=== PATIENT | male | born 1990 | race Caucasian/White ===

== ENCOUNTER 2021-05-12 14:14 | Inpatient (IN) | payer MEDICAID ==
[~2021-05-12] VITALS: Ht 182.9 cm; Wt 75.0 kg
[2021-05-12] MEDS ORDERED: LIDOcaine Viscous 15ml cup MM ONE (14:45)
[2021-05-12] MEDS ORDERED: mag hydrox/Alum hydrox/simeth 30ml oral suspension PO ONE (14:45)
[2021-05-12 15:02] LABS: BASOPHILS # (AUTO) 0.1 X10'3 (0-0.2); EOSINOPHILS % (AUTO) 0 % (0-6); HEMATOCRIT 43.3 % (42.0-52.0); HEMOGLOBIN 14.8 g/dl (14.0-17.9); LYMPHOCYTES # (AUTO) 0.6 X10'3 (1.1-4.8); MEAN CORPUSCULAR HEMOGLOBIN 32.5 PG (27.0-31.0); MEAN CORPUSCULAR HGB CONC 34.3 g/dL (33.0-36.5); MEAN CORPUSCULAR VOLUME 94.8 FL (78-98); MEAN PLATELET VOLUME 7.6 FL (7.4-10.4); MONOCYTES # (AUTO) 0.7 X10'3 (0-0.9); MONOCYTES % (AUTO) 9.4 % (2-12); NEUTROPHILS # (AUTO) 5.7 X10'3 (1.8-7.7); NEUTROPHILS % (AUTO) 80.6 % (42-75); PLATELET COUNT 164 X10'3 (140-440); RED BLOOD COUNT 4.57 X10'6 (4.70-6.10); RED CELL DISTRIBUTION WIDTH 14.8 % (11.5-14.5); WHITE BLOOD COUNT 7.1 X10'3 (4.5-11.0)
[2021-05-12] MEDS ORDERED: normal saline 1000ml 1,000 ML IV ONE (15:15)
[2021-05-12 15:18] LABS: ALANINE AMINOTRANSFERASE 71 U/L (12-78); ALKALINE PHOSPHATASE 115 IU/L (46-116); ANION GAP 22 (8-16); ASPARTATE AMINO TRANSFERASE 130 U/L (10-37); BILIRUBIN,TOTAL 1.7 MG/DL (0.1-1.0); BLOOD UREA NITROGEN 7 MG/DL (7-18); BUN/CREATININE RATIO 7.8 (5.4-32.0); CALCIUM 8.7 MG/DL (8.5-10.1); CHLORIDE 99 MMOL/L (99-107); GLUCOSE 117 MG/DL (70-104); POTASSIUM 3.6 MMOL/L (3.5-5.1); SODIUM 140 MMOL/L (135-145); TOTAL CARBON DIOXIDE 19.5 MMOL/L (24-32); eGFR > 90 ML/MIN
[2021-05-12 15:24] LABS: ETHANOL 0.185 GM/DL (0.0-0.010); LIPASE 1055 U/L (73-393)
[2021-05-12] MEDS ORDERED: LORazepam 2 mg/ml vial IV ONE (16:00)
[2021-05-12 16:04] LABS: CLARITY,URINE CLEAR (Clear); GLUCOSE, URINE NEGATIVE (Neg); KETONES,URINE >=80 mg/dl (Neg); LEUKOCYTE ESTERASE ,URINE NEGATIVE (Neg); NITRITES, URINE NEGATIVE (Neg); OCCULT BLOOD,URINE SMALL (Neg); PROTEIN,URINE >=300 mg/dl (Neg)
[2021-05-12 16:17] LABS: URINE AMPHETAMINE SCREEN POSITIVE (Neg); URINE BARBITUATE SCREEN NEGATIVE (Neg); URINE BENZODIAZEPINES SCREEN POSITIVE (Neg); URINE CANNABINOID SCREEN POSITIVE (Neg); URINE COCAINE SCREEN NEGATIVE (Neg); URINE METHADONE SCREEN NEGATIVE (Neg); URINE OPIATE SCREEN POSITIVE (Neg); URINE PHENCYCLIDINE SCREEN NEGATIVE (Neg)
[2021-05-12 16:18] LABS: UA COLLECTION TYPE VOIDED
[2021-05-12 16:19] LABS: COLOR,URINE DARK YELLOW (Yellow)
[2021-05-12 16:20] LABS: BACTERIA,URINE NONE SEEN /HPF (Neg); MUCUS STRANDS FEW /LPF (Neg); RBC,URINE 0-2 /HPF (0-2); SQUAMOUS EPITHELIAL CELL,UR FEW /LPF (FEW); WBC,URINE 0-4 /HPF (0-4)
[2021-05-12] MEDS ORDERED: HYDROcodone/acetaminophen 10/325mg tab PO ONE (16:25)
[2021-05-12] MEDS ORDERED: proCHLORperazine 10 MG/2 ml inj IV ONE (19:10)
[2021-05-12] MEDS ORDERED: folic acid inj. 2 MG, thiamine inj. 100 MG, MVI, adult No.4 with vit. K 10 ML in dextro... IV SCH ×4 (19:10)
[2021-05-12] MEDS ORDERED: normal saline 1000ML IV soln IVB ONE (19:10)
[2021-05-12] MEDS ORDERED: folic acid 1mg/0.2ml inj IV ONE (19:20)
[2021-05-12] MEDS ORDERED: thiamine 100mg/ml 2ml inj. IV ONE (19:20)
[2021-05-12] MEDS ORDERED: morphine 2 MG/ML inj. syringe IV PRN (20:05)
[2021-05-12] MEDS ORDERED: potassium Cl 40MEQ/1/2NS 520ml 520 ML IV PRN ×2 (20:05)
[2021-05-12] MEDS: normal saline 1000ml 1,000 ML IV SCH (20:05)
[2021-05-12] MEDS ORDERED: potassium Cl 20 mEq SR tablet PO PRN ×2 (20:05)
[2021-05-12] MEDS ORDERED: NO HOME MEDS (20:08)
[2021-05-12] MEDS ORDERED: pantoprazole 40 MG vial IV ONE (20:10)
[2021-05-13] MEDS: LORazepam 2 mg/ml vial IV PRN ×8 (04:35→22:52)
[2021-05-13] MEDS: normal saline 1000ml 1,000 ML IV SCH ×2 (06:29→16:29)
[2021-05-13] MEDS: morphine 2 MG/ML inj. syringe IV PRN ×3 (06:39→20:55)
[2021-05-13] MEDS: ondansetron/PF 4mg/2ml inj IV PRN ×2 (06:39→18:36)
[2021-05-13 07:04] LABS: BASOPHILS % (AUTO) 0.6 % (0-1); EOSINOPHILS % (AUTO) 0.7 % (0-6); HEMATOCRIT 39.4 % (42.0-52.0); HEMOGLOBIN 13.3 g/dl (14.0-17.9); LYMPHOCYTES % (AUTO) 14.4 % (21-51); MEAN CORPUSCULAR HGB CONC 33.6 g/dL (33.0-36.5); MEAN PLATELET VOLUME 8.3 FL (7.4-10.4); MONOCYTES # (AUTO) 0.7 X10'3 (0-0.9); MONOCYTES % (AUTO) 11.2 % (2-12); NEUTROPHILS # (AUTO) 4.9 X10'3 (1.8-7.7); NEUTROPHILS % (AUTO) 73.1 % (42-75); PLATELET COUNT 121 X10'3 (140-440); RED BLOOD COUNT 4.02 X10'6 (4.70-6.10); RED CELL DISTRIBUTION WIDTH 14.5 % (11.5-14.5); WHITE BLOOD COUNT 6.7 X10'3 (4.5-11.0)
[2021-05-13 07:13] LABS: ALANINE AMINOTRANSFERASE 52 U/L (12-78); ALBUMIN 3.5 G/DL (3.4-5.0); ALKALINE PHOSPHATASE 107 IU/L (46-116); ANION GAP 11 (8-16); ASPARTATE AMINO TRANSFERASE 92 U/L (10-37); BLOOD UREA NITROGEN 6 MG/DL (7-18); BUN/CREATININE RATIO 7.8 (5.4-32.0); CALCIUM 8.7 MG/DL (8.5-10.1); CHLORIDE 106 MMOL/L (99-107); CREATININE 0.77 MG/DL (0.60-1.10); GLUCOSE 82 MG/DL (70-104); LIPASE 891 U/L (73-393); POTASSIUM 4.4 MMOL/L (3.5-5.1); SODIUM 143 MMOL/L (135-145); TOTAL CARBON DIOXIDE 25.7 MMOL/L (24-32); TOTAL PROTEIN 6.9 G/DL (6.4-8.2); eGFR > 90 ML/MIN
[2021-05-13] MEDS: K and/or MAG REPLACEMENT MC SCH ×2 (08:00→20:00)
[2021-05-13] MEDS ORDERED: thiamine 100mg tablet PO SCH (08:00)
[2021-05-13] MEDS: heparin, porcine 5000 units/ml vial SQ SCH ×2 (08:00→20:00)
[2021-05-13 09:25] VITALS: BP 140/78
[2021-05-13 10:24] LABS: PARTIAL THROMBOPLASTIN TIME 27 SECONDS (22-32)
[2021-05-13 11:00] VITALS: BP 136/85
[2021-05-13 15:00] VITALS: BP 136/90
[2021-05-13 18:00] VITALS: BP 135/88
[2021-05-13 22:00] VITALS: BP 141/77
[2021-05-14] MEDS: LORazepam 2 mg/ml vial IV PRN (00:01)
--- NOTE | 2021-05-14 01:19 | NUR ---
Paged Dr. Parikh regarding patient leaving AMA. PAGER ID: [phone] MESSAGE: [phone]. Naren Oquendo. Patient leaving AMA. Thank you. Shonna MICHAEL x [phone]
--- NOTE | 2021-05-14 01:20 | NUR ---
Patient removed his IV and stated he wanted to leave. Pt signed an AMA form and left the hospital unassisted. Dr Parikh was notified and an occurrence report was made.
[2021-05-14] MEDS ORDERED: LORazepam 2 mg/ml vial IV PRN (20:10)
[2021-05-14] MEDS ORDERED: LORazepam 1 MG tablet PO PRN (20:10)
[2021-05-16] MEDS ORDERED: LORazepam 1 MG tablet PO PRN (20:10)
[2021-05-16] MEDS ORDERED: LORazepam 2 mg/ml vial IV PRN (20:10)
== END 2021-05-14 01:20 | disposition left against medical advice (07) | DRG 282 ==
LOC: EDBD → ER 14:15 → ED HOLD 20:06 → PCU 3S 05-13 09:29
PROVIDERS: ADMIT Internal Medicine; ATTEND Family Medicine
DX: K85.20 Alcohol induced acute pancreatitis without necrosis or infection (principal); K70.10 Alcoholic hepatitis without ascites; F10.20 Alcohol dependence, uncomplicated; F15.90 Other stimulant use, unspecified, uncomplicated; F19.10 Other psychoactive substance abuse, uncomplicated; Z20.822 Contact with and (suspected) exposure to COVID-19; Z53.29 Procedure and treatment not carried out because of patient's decision for other reasons; Z56.0 Unemployment, unspecified; Z71.41 Alcohol abuse counseling and surveillance of alcoholic; Z71.51 Drug abuse counseling and surveillance of drug abuser
CPT/HCPCS: 36415; 74176; 76700; 80053; 80305; 80320; 81001; 82948; 83690; 85025; 85610; 85730; 87081; 87635; 96361; 96374; 96375; 99285; C9113; G0378; J0780; J2060; J2270; J2405; J3411; J3490; J7030

== ENCOUNTER 2021-05-14 01:42 | Emergency (ER) | payer MEDICAID ==
[~2021-05-14] VITALS: Ht 180.3 cm; Wt 79.0 kg
[~2021-05-14 01:42] MED LIST: NO HOME MEDS
[2021-05-14] MEDS ORDERED: normal saline 1000ml 1,000 ML IV ONE (02:25)
[2021-05-14 03:43] LABS: BASOPHILS # (AUTO) 0.1 X10'3 (0-0.2); BASOPHILS % (AUTO) 0.9 % (0-1); EOSINOPHILS # (AUTO) 0.1 X10'3 (0-0.9); EOSINOPHILS % (AUTO) 2.4 % (0-6); HEMATOCRIT 37.9 % (42.0-52.0); LYMPHOCYTES # (AUTO) 0.9 X10'3 (1.1-4.8); LYMPHOCYTES % (AUTO) 15.4 % (21-51); MEAN CORPUSCULAR HEMOGLOBIN 33.1 PG (27.0-31.0); MEAN CORPUSCULAR HGB CONC 34.3 g/dL (33.0-36.5); MEAN CORPUSCULAR VOLUME 96.4 FL (78-98); MEAN PLATELET VOLUME 8.3 FL (7.4-10.4); MONOCYTES # (AUTO) 0.7 X10'3 (0-0.9); MONOCYTES % (AUTO) 12.2 % (2-12); NEUTROPHILS # (AUTO) 4.1 X10'3 (1.8-7.7); NEUTROPHILS % (AUTO) 69.1 % (42-75); PLATELET COUNT 110 X10'3 (140-440); RED BLOOD COUNT 3.93 X10'6 (4.70-6.10); RED CELL DISTRIBUTION WIDTH 14.1 % (11.5-14.5); WHITE BLOOD COUNT 5.9 X10'3 (4.5-11.0)
[2021-05-14] MEDS ORDERED: potassium Cl 20 mEq SR tablet PO PRN ×2 (03:55)
[2021-05-14] MEDS ORDERED: LORazepam 1 MG tablet PO PRN (03:55)
[2021-05-14] MEDS ORDERED: HYDROcodone/acetaminophen 5mg/325mg tablet PO PRN (03:55)
[2021-05-14] MEDS ORDERED: acetaminophen 325mg tablet PO PRN ×2 (03:55)
[2021-05-14] MEDS ORDERED: potassium Cl 40MEQ/1/2NS 520ml 520 ML IV PRN ×2 (03:55)
[2021-05-14] MEDS ORDERED: magnesium 2GM in 50ml NS 50 ML IV PRN (03:55)
[2021-05-14] MEDS ORDERED: ondansetron/PF 4mg/2ml inj IV PRN (03:55)
[2021-05-14] MEDS ORDERED: mag hydrox/Alum hydrox/simeth 30ml oral suspension PO PRN (03:55)
[2021-05-14] MEDS ORDERED: LORazepam 2 mg/ml vial IV PRN (03:55)
[2021-05-14] MEDS ORDERED: normal saline 1000ml 1,000 ML IV SCH (03:55)
[2021-05-14] MEDS ORDERED: magnesium Cl slow-release 64mg tablet PO PRN (03:55)
[2021-05-14] MEDS ORDERED: morphine 2 MG/ML inj. syringe IV PRN ×2 (03:55)
[2021-05-14] MEDS ORDERED: HYDROcodone/acetaminophen 10/325mg tab PO PRN (03:55)
[2021-05-14] MEDS ORDERED: magnesium 4gm in 100ml NS 100 ML IV PRN (03:55)
[2021-05-14 03:56] LABS: ALANINE AMINOTRANSFERASE 44 U/L (12-78); ALBUMIN 3.6 G/DL (3.4-5.0); ALKALINE PHOSPHATASE 107 IU/L (46-116); ANION GAP 10 (8-16); ASPARTATE AMINO TRANSFERASE 61 U/L (10-37); BILIRUBIN,TOTAL 2.2 MG/DL (0.1-1.0); BLOOD UREA NITROGEN 3 MG/DL (7-18); BUN/CREATININE RATIO 4.5 (5.4-32.0); CALCIUM 8.6 MG/DL (8.5-10.1); CHLORIDE 97 MMOL/L (99-107); CREATININE 0.67 MG/DL (0.60-1.10); ETHANOL < 0.010 GM/DL (0.0-0.010); GLUCOSE 83 MG/DL (70-104); LIPASE 329 U/L (73-393); POTASSIUM 3.3 MMOL/L (3.5-5.1); SODIUM 134 MMOL/L (135-145); TOTAL CARBON DIOXIDE 27.4 MMOL/L (24-32); TOTAL PROTEIN 7.2 G/DL (6.4-8.2); eGFR > 90 ML/MIN
--- NOTE | 2021-05-14 04:05 | NUR ---
Pt stands up and asks when he will be given "a bed upstairs". Requests ativan d/t difficulty sleeping. Pt medicated for anxiety and pain.
--- NOTE | 2021-05-14 05:21 | NUR ---
Pt is sleeping comfortably. Equal rise and fall of chest.
--- NOTE | 2021-05-14 07:30 | NUR ---
RN ATTEMPTS TO CALL REPORT TO [facility] MICHAEL, THIS RN WAS TOLD THAT [facility] IS IN ISOLATION ROOM AND WILL CALL ER BACK IN ABOUT 5 MINUTES.
--- NOTE | 2021-05-14 07:36 | NUR ---
RECEIVED REPORT FROM FERNANDA JENKINS IN ER. PT WILL BE GOING TO ROOM 1744C
[2021-05-14] MEDS ORDERED: thiamine inj. 100 MG in normal saline 100ml IV soln 100 ML IV SCH (08:00)
[2021-05-14] MEDS ORDERED: heparin, porcine 5000 units/ml vial SQ SCH (08:00)
[2021-05-14] MEDS ORDERED: K and/or MAG REPLACEMENT MC SCH (08:00)
[2021-05-14] MEDS ORDERED: folic acid 1mg/0.2ml inj IV SCH (08:00)
[2021-05-14 08:20] VITALS: BP 135/91
--- NOTE | 2021-05-14 08:32 | NUR ---
Page Sent PAGER ID: [phone] MESSAGE: [facility] [phone] RE: SHAR CORCORAN [id number] PT WANTS TO LEAVE AMA. THANK YOU
--- NOTE | 2021-05-14 08:37 | NUR ---
Page Sent PAGER ID: [phone] MESSAGE: ACE [phone] RE: SHAR CORCORAN [id number] PT REFUSED TO WAIT FOR MD, SIGNED AMA PAPER AT 0835 AND LEFT FLOOR
--- NOTE | 2021-05-14 08:37 | NUR ---
PT LEFT AMA, SIGNED AMA PAPERWORK AND LEFT FLOOR AT 0835. RN REMOVED IV, CANNULA INTACT, NO COMPLICATIONS
[2021-05-14] MEDS ORDERED: temazepam 15mg capsule PO PRN (21:00)
== END 2021-05-14 08:35 | disposition left against medical advice (07) ==
LOC: ER 01:47 → ED HOLD 03:57 → UNDOADMIN 03:57 → ED HOLD 08:30 → ORTHO 4S 08:30 → UNDODISIN 08:35 → ER 08:35
DX: K85.90 Acute pancreatitis without necrosis or infection, unspecified (principal); F10.230 Alcohol dependence with withdrawal, uncomplicated
CPT/HCPCS: 36415; 80053; 80320; 83690; 85025; 87081; 96361; 96374; 99284; J2060; J7030

== ENCOUNTER 2021-05-15 19:53 | Emergency (ER) | payer SELFPAY ==
--- NOTE | 2021-05-15 21:15 | NUR ---
PT IS CAUSING PROBLEMS WHILE WAITING FOR A BED ON [facility]BUL[facility]. SECURITY PRESENT
[2021-05-15] MEDS ORDERED: sucralfate 1gm/10ml UD suspension PO STA (21:45)
[2021-05-15] MEDS ORDERED: mag hydrox/Alum hydrox/simeth 30ml oral suspension PO ONE (21:45)
[2021-05-15] MEDS ORDERED: LIDOcaine Viscous 15ml cup MM ONE (21:45)
== END 2021-05-16 00:15 | disposition left against medical advice (07) ==
LOC: ER 19:53
DX: F10.129 Alcohol abuse with intoxication, unspecified (principal); K29.20 Alcoholic gastritis without bleeding; Z72.89 Other problems related to lifestyle; Z56.0 Unemployment, unspecified; Y90.9 Presence of alcohol in blood, level not specified
CPT/HCPCS: 99283

== ENCOUNTER 2021-05-21 04:51 | Emergency (ER) | payer SELFPAY ==
[~2021-05-21] VITALS: Ht 180.3 cm; Wt 74.2 kg
[2021-05-21 04:59] VITALS: BP 131/93
[2021-05-21] MEDS ORDERED: CHLO25CA10 PO (05:03)
[2021-05-21] MEDS ORDERED: ONDA8TAB13 PO (05:03)
[2021-05-21] MEDS ORDERED: LORazepam 1 MG tablet PO ONE (05:05)
== END 2021-05-21 06:00 | disposition home or self-care (01) ==
LOC: ER 04:52
DX: F10.239 Alcohol dependence with withdrawal, unspecified (principal); Z72.89 Other problems related to lifestyle; Z56.0 Unemployment, unspecified; Z59.0 Homelessness; Z79.899 Other long term (current) drug therapy; Y90.9 Presence of alcohol in blood, level not specified
CPT/HCPCS: 99283

== ENCOUNTER 2021-05-24 08:41 | Emergency (ER) | payer SELFPAY ==
[~2021-05-24] VITALS: Ht 180.3 cm; Wt 80.0 kg
[~2021-05-24 08:41] MED LIST changes: +CHLO25CA10 PO; +ONDA8TAB13 PO
[2021-05-24] MEDS ORDERED: NO HOME MEDS (09:06)
[2021-05-24 09:19] LABS: WHITE BLOOD COUNT 4.5 X10'3 (4.5-11.0)
[2021-05-24 09:20] LABS: HEMATOCRIT 43.8 % (42.0-52.0); HEMOGLOBIN 14.5 g/dl (14.0-17.9); MEAN CORPUSCULAR HEMOGLOBIN 32.4 PG (27.0-31.0); MEAN CORPUSCULAR HGB CONC 33.2 g/dL (33.0-36.5); MEAN CORPUSCULAR VOLUME 97.8 FL (78-98); MEAN PLATELET VOLUME 7.2 FL (7.4-10.4); PLATELET COUNT 400 X10'3 (140-440); RED BLOOD COUNT 4.48 X10'6 (4.70-6.10); RED CELL DISTRIBUTION WIDTH 14.8 % (11.5-14.5)
[2021-05-24 09:32] LABS: ALANINE AMINOTRANSFERASE 88 U/L (12-78); ALBUMIN 3.8 G/DL (3.4-5.0); ALBUMIN/GLOBULIN RATIO 0.9 (1.1-1.5); ALKALINE PHOSPHATASE 112 IU/L (46-116); ANION GAP 12 (8-16); ASPARTATE AMINO TRANSFERASE 62 U/L (10-37); BILIRUBIN,TOTAL 0.3 MG/DL (0.1-1.0); BLOOD UREA NITROGEN 4 MG/DL (7-18); BUN/CREATININE RATIO 6.1 (5.4-32.0); CALCIUM 8.4 MG/DL (8.5-10.1); CHLORIDE 110 MMOL/L (99-107); CREATININE 0.66 MG/DL (0.60-1.10); GLUCOSE 80 MG/DL (70-104); POTASSIUM 4.1 MMOL/L (3.5-5.1); SODIUM 148 MMOL/L (135-145); TOTAL CARBON DIOXIDE 25.7 MMOL/L (24-32); TOTAL PROTEIN 7.9 G/DL (6.4-8.2); eGFR > 90 ML/MIN
[2021-05-24 09:33] LABS: LIPASE 309 U/L (73-393)
[2021-05-24 09:35] LABS: ETHANOL 0.385 GM/DL (0.0-0.010)
--- NOTE | 2021-05-24 10:00 | NUR ---
PATIENT PLACED ON 3L OF O2 AND SAT UP IN BED PER MD VAZQUEZ REQUEST
[2021-05-24 10:05] LABS: TOTAL CELLS COUNTED 100
[2021-05-24 10:06] LABS: PLATELET ESTIMATE NORMAL
[2021-05-24 11:37] VITALS: BP 122/90
--- NOTE | 2021-05-24 13:39 | NUR ---
PT AMBULATORY WITHOUT ASSISTANCE AROUND THE ER.
[2021-05-25] MEDS ORDERED: SUCR1TAB34 PO (01:06)
== END 2021-05-24 13:41 | disposition home or self-care (01) ==
LOC: ER 08:42
DX: F10.129 Alcohol abuse with intoxication, unspecified (principal); R41.82 Altered mental status, unspecified; R19.7 Diarrhea, unspecified; R11.10 Vomiting, unspecified; R10.13 Epigastric pain; Z72.89 Other problems related to lifestyle; Z56.0 Unemployment, unspecified; Z59.0 Homelessness; Y90.0 Blood alcohol level of less than 20 mg/100 ml
CPT/HCPCS: 36415; 70450; 80053; 80320; 83690; 85007; 85025; 99284

== ENCOUNTER 2021-05-25 00:57 | Emergency (ER) | payer SELFPAY ==
[~2021-05-25] VITALS: Ht 180.3 cm; Wt 74.6 kg
[~2021-05-25 00:57] MED LIST changes: -CHLO25CA10 PO; -ONDA8TAB13 PO
[2021-05-25] MEDS ORDERED: SUCR1TAB34 PO (01:06)
[2021-05-25] MEDS ORDERED: sucralfate 1gm/10ml UD suspension PO STA (01:07)
[2021-05-25] MEDS ORDERED: LIDOcaine Viscous 15ml cup MM ONE (01:10)
[2021-05-25] MEDS ORDERED: sucralfate 1 gm tablet PO STA (01:10)
[2021-05-25] MEDS ORDERED: mag hydrox/Alum hydrox/simeth 30ml oral suspension PO ONE (01:10)
[2021-05-25 01:28] VITALS: BP 118/86
[2021-05-25 01:28] LABS: MEAN PLATELET VOLUME 6.7 FL (7.4-10.4)
[2021-05-25 01:30] LABS: HEMATOCRIT 43.3 % (42.0-52.0); HEMOGLOBIN 14.8 g/dl (14.0-17.9); MEAN CORPUSCULAR HEMOGLOBIN 32.9 PG (27.0-31.0); MEAN CORPUSCULAR HGB CONC 34.1 g/dL (33.0-36.5); MEAN CORPUSCULAR VOLUME 96.5 FL (78-98); PLATELET COUNT 430 X10'3 (140-440); RED BLOOD COUNT 4.49 X10'6 (4.70-6.10); RED CELL DISTRIBUTION WIDTH 14.5 % (11.5-14.5); WHITE BLOOD COUNT 5.5 X10'3 (4.5-11.0)
[2021-05-25 01:42] LABS: ALANINE AMINOTRANSFERASE 98 U/L (12-78); ALBUMIN 4.2 G/DL (3.4-5.0); ALKALINE PHOSPHATASE 117 IU/L (46-116); ANION GAP 10 (8-16); ASPARTATE AMINO TRANSFERASE 89 U/L (10-37); BILIRUBIN,TOTAL 0.3 MG/DL (0.1-1.0); BLOOD UREA NITROGEN 5 MG/DL (7-18); BUN/CREATININE RATIO 5.2 (5.4-32.0); CALCIUM 8.8 MG/DL (8.5-10.1); CHLORIDE 107 MMOL/L (99-107); CREATININE 0.97 MG/DL (0.60-1.10); GLUCOSE 95 MG/DL (70-104); LIPASE 555 U/L (73-393); POTASSIUM 3.8 MMOL/L (3.5-5.1); SODIUM 147 MMOL/L (135-145); TOTAL CARBON DIOXIDE 30.5 MMOL/L (24-32); TOTAL PROTEIN 8.4 G/DL (6.4-8.2); eGFR > 90 ML/MIN
[2021-05-25 01:58] LABS: NEUTROPHILS % (MANUAL) 75 % (42-75); TOTAL CELLS COUNTED 100
[2021-05-25 01:59] LABS: EOSINOPHILS % (MANUAL) 1 % (0-6); LYMPHOCYTES % (MANUAL) 18 % (21-51); MONOCYTES % (MANUAL) 6 % (2-12); PLATELET ESTIMATE INCREASED
== END 2021-05-25 02:42 | disposition home or self-care (01) ==
LOC: ER 00:58
DX: F10.129 Alcohol abuse with intoxication, unspecified (principal); K29.20 Alcoholic gastritis without bleeding; R10.12 Left upper quadrant pain; Z72.89 Other problems related to lifestyle; Z56.0 Unemployment, unspecified; Z59.0 Homelessness; Z79.899 Other long term (current) drug therapy; Y90.9 Presence of alcohol in blood, level not specified
CPT/HCPCS: 36415; 80053; 83690; 85007; 85025; 99284

== ENCOUNTER 2021-06-01 02:26 | Emergency (ER) | payer SELFPAY ==
[~2021-06-01] VITALS: Ht 180.3 cm; Wt 77.3 kg
[~2021-06-01 02:26] MED LIST changes: +SUCR1TAB34 PO
[2021-06-01] MEDS ORDERED: magnesium oxide 400mg tablet PO ONE (02:35)
[2021-06-01] MEDS ORDERED: thiamine 100mg tablet PO ONE (02:35)
[2021-06-01] MEDS ORDERED: ondansetron/PF 4mg/2ml inj IV ONE (02:35)
[2021-06-01] MEDS ORDERED: phenobarbital inj 260 MG in normal saline 100ml IV soln 100 ML IV ONE (02:35)
[2021-06-01] MEDS ORDERED: normal saline 1000ML IV soln IVB ONE (02:35)
[2021-06-01 03:09] LABS: BASOPHILS # (AUTO) 0.1 X10'3 (0-0.2); LYMPHOCYTES # (AUTO) 1.8 X10'3 (1.1-4.8); LYMPHOCYTES % (AUTO) 36.2 % (21-51)
[2021-06-01 03:10] LABS: ALANINE AMINOTRANSFERASE 64 U/L (12-78); ALBUMIN 3.4 G/DL (3.4-5.0); ALBUMIN/GLOBULIN RATIO 0.9 (1.1-1.5); ALKALINE PHOSPHATASE 107 IU/L (46-116); ANION GAP 11 (8-16); ASPARTATE AMINO TRANSFERASE 45 U/L (10-37); BILIRUBIN,TOTAL 0.5 MG/DL (0.1-1.0); BLOOD UREA NITROGEN 4 MG/DL (7-18); BUN/CREATININE RATIO 4.8 (5.4-32.0); CALCIUM 8.6 MG/DL (8.5-10.1); CHLORIDE 105 MMOL/L (99-107); CREATININE 0.83 MG/DL (0.60-1.10); ETHANOL 0.106 GM/DL (0.0-0.010); GLUCOSE 79 MG/DL (70-104); LIPASE 343 U/L (73-393); MAGNESIUM 1.9 MG/DL (1.5-2.4); POTASSIUM 4.1 MMOL/L (3.5-5.1); SODIUM 143 MMOL/L (135-145); TOTAL CARBON DIOXIDE 26.8 MMOL/L (24-32); TOTAL PROTEIN 7.3 G/DL (6.4-8.2); eGFR > 90 ML/MIN
[2021-06-01 03:11] LABS: BASOPHILS % (AUTO) 2.7 % (0-1); EOSINOPHILS # (AUTO) 0.2 X10'3 (0-0.9); EOSINOPHILS % (AUTO) 4.9 % (0-6); HEMATOCRIT 37.6 % (42.0-52.0); HEMOGLOBIN 12.7 g/dl (14.0-17.9); MEAN CORPUSCULAR HEMOGLOBIN 32.7 PG (27.0-31.0); MEAN CORPUSCULAR HGB CONC 33.8 g/dL (33.0-36.5); MEAN CORPUSCULAR VOLUME 96.9 FL (78-98); MEAN PLATELET VOLUME 7.6 FL (7.4-10.4); MONOCYTES # (AUTO) 0.6 X10'3 (0-0.9); MONOCYTES % (AUTO) 13.3 % (2-12); NEUTROPHILS # (AUTO) 2.1 X10'3 (1.8-7.7); NEUTROPHILS % (AUTO) 42.9 % (42-75); PLATELET COUNT 255 X10'3 (140-440); RED BLOOD COUNT 3.88 X10'6 (4.70-6.10); RED CELL DISTRIBUTION WIDTH 14.5 % (11.5-14.5); WHITE BLOOD COUNT 4.9 X10'3 (4.5-11.0)
--- NOTE | 2021-06-01 04:00 | NUR ---
ASLEEP ON GURNEY. RESP UNLABORED. IV PATENT AND INFUSING WELL.
[2021-06-01 04:36] LABS: NEUTROPHILS % (MANUAL) 44 % (42-75); TOTAL CELLS COUNTED 100
[2021-06-01 04:37] LABS: BANDS% (MANUAL) 1 % (0-10); EOSINOPHILS % (MANUAL) 5 % (0-6); LYMPHOCYTES % (MANUAL) 41 % (21-51); MONOCYTES % (MANUAL) 9 % (2-12); PLATELET ESTIMATE NORMAL
[2021-06-01 05:44] VITALS: BP 114/90
== END 2021-06-01 05:47 | disposition home or self-care (01) ==
LOC: ER 02:26
DX: F10.129 Alcohol abuse with intoxication, unspecified (principal); R10.13 Epigastric pain; K29.20 Alcoholic gastritis without bleeding; Z72.89 Other problems related to lifestyle; Z56.0 Unemployment, unspecified; Z59.0 Homelessness; Z79.899 Other long term (current) drug therapy; Y90.0 Blood alcohol level of less than 20 mg/100 ml
CPT/HCPCS: 36415; 71045; 80053; 80320; 83690; 83735; 85007; 85025; 93005; 96361; 96374; 96375; 99285; J2405; J2560; J7030